=== PATIENT | female | born 1965 | race Caucasian/White ===

== ENCOUNTER 2018-05-21 11:15 | Emergency (ER) | payer MEDICARE, OTHER ==
[~2018-05-21] VITALS: Ht 167.6 cm; Wt 104.3 kg
[2018-05-21] MEDS ORDERED: FURO40 PO (12:39)
[2018-05-21] MEDS ORDERED: AMLO5 (12:40)
[2018-05-21] MEDS ORDERED: METO50 PO (12:40)
[2018-05-21] MEDS ORDERED: RIFA550T2 PO (12:40)
[2018-05-21] MEDS ORDERED: Humalog100 UNIT/1 (12:41)
== END 2018-05-21 13:34 | disposition home or self-care (01) ==
LOC: ER 11:15
DX: Z46.89 Encounter for fitting and adjustment of other specified devices (principal); S91.302A Unspecified open wound, left foot, initial encounter; M14.672 Charcot's joint, left ankle and foot; E11.9 Type 2 diabetes mellitus without complications; X58.XXXA Exposure to other specified factors, initial encounter